=== PATIENT | female | born 1950 | race Caucasian/White ===

== ENCOUNTER → 2018-09-20 | Outpatient (CLI) | payer BC | END | disposition home or self-care (01) | LOC: CFH 14:32 | PROVIDERS: ATTEND Family Medicine | DX: N63.10 Unspecified lump in the right breast, unspecified quadrant (principal); Z80.3 Family history of malignant neoplasm of breast | CPT/HCPCS: 76642; 77066; G0279 ==

== ENCOUNTER 2018-09-22 12:10 | Outpatient (CLI) | payer BC ==
[2018-09-22] MEDS ORDERED: LIDOCAINE 1%, 20ML ONE (12:30)
[2018-09-22] MEDS ORDERED: LIDOCAINE 1%-EPI 1:100K, 20ML ONE (12:30)
[2018-09-22] MEDS ORDERED: SODIUM BICARBONATE 4.0%, 5ML ONE (12:30)
== END 2018-09-22 23:59 | disposition home or self-care (01) ==
LOC: CFH 12:10
PROVIDERS: ATTEND Family Medicine
DX: C50.911 Malignant neoplasm of unspecified site of right female breast (principal)
CPT/HCPCS: 19083; 77065; 88305; 88341; 88342; 88360; J3490; 19285

== ENCOUNTER → 2018-10-06 | Outpatient (CLI) | payer BC ==
[~2018-10-06] MED LIST: CHOL5000 PO; CLON0.5T11 PO; FLUO20CA19 PO; FLUT9.9S NS; GLUC15006 PO; KRIL1CAP22 PO; LEVO112T2 PO; MULT-717 PO; TRIA1TAB3 PO; VALA500T PO; [UNRECOGNIZED DRUG - CODE] PO
[2018-10-06 10:39] LABS: ALANINE AMINOTRANSFERASE 20 U/L (12-78); ALBUMIN 3.9 g/dL (3.4-5.0); ANION GAP 4 mmol/L (5-15); CALCIUM 9.3 mg/dL (8.5-10.1); CHLORIDE 108 mmol/L (98-107); CREATININE 1.01 mg/dL (0.55-1.02)
[2018-10-06 10:42] LABS: ALKALINE PHOSPHATASE 115 U/L (45-117); BILIRUBIN,TOTAL 0.5 mg/dL (0.2-1.0); TOTAL PROTEIN 7.6 g/dL (6.4-8.2)
== END | disposition home or self-care (01) ==
LOC: STAR 07:59
PROVIDERS: ATTEND Surgery
DX: Z01.818 Encounter for other preprocedural examination (principal)
CPT/HCPCS: 36415; 80053; 93005

== ENCOUNTER 2018-10-16 10:35 | Day surgery (SDC) | payer BC ==
[2018-10-06 08:38] VITALS: BP 147/98
[~2018-10-16] VITALS: Ht 167.6 cm; Wt 82.9 kg
[~2018-10-16 10:35] MED LIST changes: +BUPIVACAINE/PF-EPI 0.5% 1:200K ONE; +FENTANYL PF 250 MCG/5ML ONE; +ISOSULFAN BLUE 10 MG/ML, 5ML IV ONE; +MIDAZOLAM 1 MG/ML, 2ML ONE
[2018-10-16] MEDS ORDERED: LACTATED RINGERS 1,000 ML IV SCH (10:49)
[2018-10-16] MEDS ORDERED: LIDOCAINE-MPF 1%, 5ML ONE (10:52)
[2018-10-16 10:55] VITALS: BP 147/98
[2018-10-16] MEDS ORDERED: DIAZEPAM 5 MG TABLET PO ONE (11:00)
[2018-10-16] MEDS ORDERED: ACETAMINOPHEN 500 MG TABLET PO ONE (11:00)
[2018-10-16] MEDS ORDERED: ONDANSETRON ODT 8 MG PO ONE (11:00)
[2018-10-16] MEDS ORDERED: GABAPENTIN 300 MG CAPSULE PO ONE (11:00)
[2018-10-16] MEDS ORDERED: LIDOCAINE-MPF 1%, 2ML INFIL ONE (11:30)
[2018-10-16] MEDS ORDERED: PROPOFOL 10 MG/ML, 20ML ONE (12:20)
[2018-10-16] MEDS ORDERED: CEFAZOLIN 1,000 MG ONE (12:20)
[2018-10-16] MEDS ORDERED: MEPERIDINE/PF 25MG/0.5ML IVPush PRN (12:30)
[2018-10-16] MEDS ORDERED: ONDANSETRON 2MG/ML, 2ML IV PRN (12:30)
[2018-10-16] MEDS ORDERED: ALBUTEROL/IPRATROPIUM 2.5MG/0.5MG, 3 ML NPPB PRN (12:30)
[2018-10-16] MEDS ORDERED: FENTANYL PF 100 MCG/2ML IV PRN (12:30)
[2018-10-16] MEDS ORDERED: MIDAZOLAM 1 MG/ML, 2ML IV PRN (12:30)
[2018-10-16] MEDS ORDERED: METOPROLOL 1 MG/ML, 5ML IV PRN (12:30)
[2018-10-16] MEDS ORDERED: OXYcodone 5 MG/5 ML ORAL.SOL UDC PO PRN (12:30)
[2018-10-16] MEDS ORDERED: HYDROmorphone 2 MG/ML, 1ML IVPush PRN (12:30)
[2018-10-16] MEDS ORDERED: hydrALAzine 20 MG/ML, 1ML IV PRN (12:30)
[2018-10-16] MEDS ORDERED: PROMETHAZINE 25 MG/ML, 1ML IV PRN (12:30)
[2018-10-16] MEDS ORDERED: OXYcodone 5 MG/5 ML ORAL.SOL UDC ONE (12:44)
[2018-10-16] MEDS ORDERED: ROCURONIUM 10MG/ML,5ML ONE (15:13)
[2018-10-16] MEDS ORDERED: DEXAMETHASONE 4 MG/ML, 1ML ONE (15:13)
[2018-10-16] MEDS ORDERED: SUCCINYLCHOLINE 20 MG/ML, 10ML ONE (15:13)
== END 2018-10-16 15:20 | disposition home or self-care (01) ==
LOC: OUT 10:35 → EDSTATUS 13:00 → OUT 15:20
PROVIDERS: ATTEND Surgery
DX: C50.411 Malignant neoplasm of upper-outer quadrant of right female breast (principal); R59.1 Generalized enlarged lymph nodes; F41.9 Anxiety disorder, unspecified; I10 Essential (primary) hypertension; E89.0 Postprocedural hypothyroidism; Z72.89 Other problems related to lifestyle
CPT/HCPCS: 19301; 38525; 38792; 76098; 88307; A9541; C1729; J0330; J0690; J1100; J2250; J2704; J3010; J7120; Q0162

== ENCOUNTER 2018-10-23 06:54 | Day surgery (SDC) | payer BC ==
[~2018-10-23] VITALS: Ht 167.6 cm; Wt 83.6 kg
[~2018-10-23 06:54] MED LIST changes: -FENTANYL PF 250 MCG/5ML ONE; -ISOSULFAN BLUE 10 MG/ML, 5ML IV ONE; -MIDAZOLAM 1 MG/ML, 2ML ONE
[2018-10-23] MEDS ORDERED: ACETAMINOPHEN 500 MG TABLET PO ONE ×2 (07:30→08:00)
[2018-10-23] MEDS ORDERED: SCOPOLAMINE PATCH, 1.5MG PATCH.TD72 TD ONE ×2 (07:30→08:00)
[2018-10-23] MEDS ORDERED: GABAPENTIN 300 MG CAPSULE PO ONE ×2 (07:30→08:00)
[2018-10-23 07:39] VITALS: BP 141/95
[2018-10-23] MEDS ORDERED: LACTATED RINGERS 1,000 ML IV SCH (07:39)
[2018-10-23] MEDS ORDERED: MIDAZOLAM 1 MG/ML, 2ML ONE (08:13)
[2018-10-23] MEDS ORDERED: FENTANYL PF 250 MCG/5ML ONE (08:13)
[2018-10-23] MEDS ORDERED: LIDOCAINE-MPF 2% ,5ML ONE (08:15)
[2018-10-23] MEDS ORDERED: PROPOFOL 10 MG/ML, 20ML ONE (08:15)
[2018-10-23] MEDS ORDERED: CEFAZOLIN 1,000 MG ONE ×2 (08:16→08:17)
[2018-10-23] MEDS ORDERED: WATER-INJECTION,STERILE 10 ML IV ONE (08:16)
[2018-10-23] MEDS ORDERED: ONDANSETRON 2MG/ML, 2ML ONE ×2 (08:19)
[2018-10-23] MEDS ORDERED: DEXAMETHASONE 4 MG/ML, 1ML ONE (08:55)
[2018-10-23] MEDS ORDERED: NEOSTIGMINE 1 MG/ML, 10ML ONE (08:55)
[2018-10-23] MEDS ORDERED: GLYCOPYRROLATE 0.4 MG/2 ML, 2ML ONE (09:15)
[2018-10-23] MEDS ORDERED: KETOROLAC 30 MG/1 ML ONE (09:15)
[2018-10-23] MEDS ORDERED: HYDROmorphone 2 MG/ML, 1ML IVPush PRN (09:30)
[2018-10-23] MEDS ORDERED: HALOPERIDOL 5 MG/ML IV PRN (09:30)
[2018-10-23] MEDS ORDERED: FENTANYL PF 100 MCG/2ML IV PRN (09:30)
[2018-10-23] MEDS ORDERED: hydrALAzine 20 MG/ML, 1ML IV PRN (09:30)
[2018-10-23] MEDS ORDERED: ACETAMINOPHEN 325 MG TABLET PO PRN (09:30)
[2018-10-23] MEDS ORDERED: PROMETHAZINE 25 MG/ML, 1ML IV PRN (09:30)
[2018-10-23] MEDS ORDERED: MEPERIDINE/PF 25MG/0.5ML IVPush PRN (09:30)
[2018-10-23] MEDS ORDERED: OXYcodone 5 MG/5 ML ORAL.SOL UDC PO PRN (09:30)
[2018-10-23] MEDS ORDERED: OXYcodone 5 MG/5 ML ORAL.SOL UDC ONE (09:46)
== END 2018-10-23 11:40 | disposition home or self-care (01) ==
LOC: OUT 06:54
PROVIDERS: ATTEND Surgery
DX: C50.911 Malignant neoplasm of unspecified site of right female breast (principal); R59.1 Generalized enlarged lymph nodes; N64.1 Fat necrosis of breast; F41.9 Anxiety disorder, unspecified; I10 Essential (primary) hypertension; E89.0 Postprocedural hypothyroidism; Z72.89 Other problems related to lifestyle
CPT/HCPCS: 19301; 38525; 88305; C1729; J0690; J1100; J1885; J2250; J2405; J2704; J2710; J3010; J3490; J7120; 88341; 88342

== ENCOUNTER → 2018-12-21 | Outpatient (CLI) | payer BC ==
[~2018-12-21] MED LIST changes: -BUPIVACAINE/PF-EPI 0.5% 1:200K ONE; +OMNIPAQUE 350 MG/ML, 100ML BOTTLE ONE
== END | disposition home or self-care (01) ==
LOC: PETCFH 07:23
PROVIDERS: ATTEND Internal Medicine Hematology & Oncology
DX: C50.811 Malignant neoplasm of overlapping sites of right female breast (principal); N28.89 Other specified disorders of kidney and ureter; Z87.891 Personal history of nicotine dependence
CPT/HCPCS: 71260; 74177; 78306; A9503; Q9967

== ENCOUNTER 2019-03-20 10:43 | Outpatient (CLI) | payer BC ==
[~2019-03-20 10:43] MED LIST changes: -OMNIPAQUE 350 MG/ML, 100ML BOTTLE ONE; +VITS1TAB3 PO; -[UNRECOGNIZED DRUG - CODE] PO
== END 2019-03-20 23:59 | disposition home or self-care (01) ==
LOC: ROC 10:43
PROVIDERS: ATTEND Radiology Radiation Oncology
DX: C50.411 Malignant neoplasm of upper-outer quadrant of right female breast (principal)
CPT/HCPCS: 99213; G0463

== ENCOUNTER 2019-03-21 09:05 | Outpatient (CLI) | payer BC | END 2019-03-21 23:59 | disposition home or self-care (01) | LOC: CFH 09:05 | PROVIDERS: ATTEND Internal Medicine Hematology & Oncology | DX: Z13.820 Encounter for screening for osteoporosis (principal); C50.811 Malignant neoplasm of overlapping sites of right female breast; Z78.0 Asymptomatic menopausal state | CPT/HCPCS: 77080 ==

== ENCOUNTER → 2019-07-11 | Outpatient (CLI) | payer BC | END | disposition home or self-care (01) | LOC: CFH 14:28 | PROVIDERS: ATTEND Radiology Radiation Oncology | DX: C50.411 Malignant neoplasm of upper-outer quadrant of right female breast (principal); R92.8 Other abnormal and inconclusive findings on diagnostic imaging of breast; Z87.891 Personal history of nicotine dependence; Z82.5 Family history of asthma and other chronic lower respiratory diseases; Z82.49 Family history of ischemic heart disease and other diseases of the circulatory system | CPT/HCPCS: 77066; G0279 ==

== ENCOUNTER → 2019-08-10 | Outpatient (CLI) | payer BC | END | disposition home or self-care (01) | LOC: EDSTATUS 04-30 18:00 → ROC 07:31 | PROVIDERS: ATTEND Radiology Radiation Oncology | DX: Z08 Encounter for follow-up examination after completed treatment for malignant neoplasm (principal); Z85.3 Personal history of malignant neoplasm of breast; Z92.3 Personal history of irradiation | CPT/HCPCS: 99212; G0463 ==

== ENCOUNTER 2020-01-29 10:02 | Day surgery (SDC) | payer BC ==
[2020-01-28 08:45] LABS: BASOPHILS # (AUTO) 0.03 x10^3/uL (0-0.1); BASOPHILS % (AUTO) 1 % (0-1); EOSINOPHILS # (AUTO) 0.16 x10^3/uL (0-0.4); EOSINOPHILS % (AUTO) 3 % (1-7); LYMPHOCYTES % (AUTO) 23 % (22-44); MD NO; MEAN CORPUSCULAR HEMOGLOBIN 32.7 pg (27.0-34.8); MEAN CORPUSCULAR HGB CONC 32.8 g/dL (32.4-35.8); MEAN CORPUSCULAR VOLUME 99.7 fL (80-100); MEAN PLATELET VOLUME 7.5 fL (7.4-10.4); MONOCYTES # (AUTO) 0.47 x10^3/uL (0.2-0.8); MONOCYTES % (AUTO) 9 % (2-9); NEUTROPHILS # (AUTO) 3.44 x10^3/uL (1.8-6.8); NEUTROPHILS % (AUTO) 65 % (42-75); PLATELET COUNT 223 x10^3/uL (130-400); RED BLOOD COUNT 4.53 x10^6/uL (3.82-5.3); RED CELL DISTRIBUTION WIDTH 13.2 % (9.6-15.2)
[2020-01-28 08:57] LABS: ALANINE AMINOTRANSFERASE 26 U/L (12-78); ALBUMIN 3.8 g/dL (3.4-5.0); ANION GAP 6 mmol/L (5-15); CALCIUM 9.1 mg/dL (8.5-10.1); CHLORIDE 107 mmol/L (98-107); CREATININE 1.05 mg/dL (0.55-1.02)
[2020-01-28 08:59] LABS: ALKALINE PHOSPHATASE 98 U/L (45-117); BILIRUBIN,TOTAL 0.6 mg/dL (0.2-1.0); TOTAL PROTEIN 7.7 g/dL (6.4-8.2)
[2020-01-28 09:34] LABS: INTERNATIONAL NORMALIZED RATIO 0.98 (0.93-1.1); PROTHROMBIN TIME 10.4 Seconds (9.6-11.5)
[~2020-01-29] VITALS: Ht 167.6 cm; Wt 77.2 kg
[~2020-01-29 10:02] MED LIST changes: +ACET650T59 PO; +ANAS1TAB49 PO; +ASCO-96 PO; +BUPIVACAINE/PF 0.25% ONE; +CALC1CAP8 PO; +CLON-364 PO; -CLON0.5T11 PO; +CYAN50008 PO; +FAMO-79 PO; +HEPARIN 1,000 UNITS/ML, 10ML ONE; +INDOCYANINE GREEN 25 MG VIAL ONE; +LACT1CAP20 PO; +LORA-702 PO; +MAGN400T36 PO; +POTASSIUM CITRATE PO; -VALA500T PO; +VALA500T8 PO; +[UNRECOGNIZED DRUG - OTHER] PO
[2020-01-29 10:28] VITALS: BP 145/93
[2020-01-29] MEDS ORDERED: LACTATED RINGERS 1,000 ML IV SCH (10:30)
[2020-01-29] MEDS ORDERED: CEFOTETAN PMX 2GM/50ML 50 ML IV ONE (10:30)
[2020-01-29] MEDS ORDERED: CHLORHEXIDINE 15 ML UDC MM ONE (10:30)
[2020-01-29] MEDS ORDERED: FENTANYL PF 250 MCG/5ML ONE (12:33)
[2020-01-29] MEDS ORDERED: MIDAZOLAM 1 MG/ML, 2ML ONE (12:33)
[2020-01-29] MEDS ORDERED: NEOSTIGMINE 1 MG/ML, 10ML ONE (12:36)
[2020-01-29] MEDS ORDERED: ONDANSETRON 2MG/ML, 2ML ONE (12:36)
[2020-01-29] MEDS ORDERED: GLYCOPYRROLATE 0.4 MG/2 ML, 2ML ONE (12:36)
[2020-01-29] MEDS ORDERED: PROPOFOL 10 MG/ML, 100ML IV ONE (12:36)
[2020-01-29] MEDS ORDERED: DEXAMETHASONE 4 MG/ML, 1ML ONE (12:36)
[2020-01-29] MEDS ORDERED: BUPIVACAINE/PF-EPI 0.25% 1:200K ONE (12:51)
[2020-01-29] MEDS ORDERED: hydrALAzine 20 MG/ML, 1ML IV PRN (14:00)
[2020-01-29] MEDS ORDERED: OXYC-302 PO (14:00)
[2020-01-29] MEDS ORDERED: LABETALOL 5MG/ML, 20ML IV PRN (14:00)
[2020-01-29] MEDS ORDERED: OXYcodone 5 MG/5 ML ORAL.SOL UDC PO PRN (14:00)
[2020-01-29] MEDS ORDERED: ONDANSETRON 2MG/ML, 2ML IVPush PRN (14:00)
[2020-01-29] MEDS ORDERED: OXYcodone 5 MG/5 ML ORAL.SOL UDC ONE (14:18)
[2020-01-29] MEDS ORDERED: FENTANYL PF 100 MCG/2ML ONE ×2 (14:18→14:48)
[2020-01-29] MEDS: HYDROmorphone 1 MG/ML, 1ML INJ IVPush PRN ×4 (14:19→14:50)
[2020-01-29] MEDS: FENTANYL PF 100 MCG/2ML IV PRN ×5 (14:22→14:56)
[2020-01-29] MEDS ORDERED: HYDROmorphone 1 MG/ML, 1ML INJ ONE (14:29)
[2020-01-29] MEDS ORDERED: MEPERIDINE/PF 25MG/ML,1ML ONE (14:53)
== END 2020-01-29 17:30 | disposition home or self-care (01) ==
LOC: OUT 10:02
PROVIDERS: ATTEND Specialist
DX: R19.09 Other intra-abdominal and pelvic swelling, mass and lump (principal); Z11.59 Encounter for screening for other viral diseases; C77.4 Secondary and unspecified malignant neoplasm of inguinal and lower limb lymph nodes; N87.9 Dysplasia of cervix uteri, unspecified; D25.9 Leiomyoma of uterus, unspecified; N83.292 Other ovarian cyst, left side; N83.291 Other ovarian cyst, right side; I10 Essential (primary) hypertension; E89.0 Postprocedural hypothyroidism; K21.9 Gastro-esophageal reflux disease without esophagitis; F41.8 Other specified anxiety disorders; Z79.01 Long term (current) use of anticoagulants; Z79.890 Hormone replacement therapy; Z79.899 Other long term (current) drug therapy; Z85.3 Personal history of malignant neoplasm of breast; Z85.850 Personal history of malignant neoplasm of thyroid; Z98.890 Other specified postprocedural states; Z82.49 Family history of ischemic heart disease and other diseases of the circulatory system
CPT/HCPCS: 36415; 58552; 71046; 80053; 85025; 85610; 85730; 86304; 86850; 86900; 86923; 88112; 88305; 88307; 88342; 93005; J1100; J1170; J1644; J2250; J2405; J2704; J2710; J3010; J3490; J7120; S2900; U0001

== ENCOUNTER → 2020-03-26 | Outpatient (CLI) | payer BC ==
[~2020-03-26] MED LIST changes: -BUPIVACAINE/PF 0.25% ONE; -HEPARIN 1,000 UNITS/ML, 10ML ONE; -INDOCYANINE GREEN 25 MG VIAL ONE; +OXYC-302 PO
== END | disposition home or self-care (01) ==
LOC: ROC 08:53
PROVIDERS: ATTEND Radiology Radiation Oncology
DX: C77.4 Secondary and unspecified malignant neoplasm of inguinal and lower limb lymph nodes (principal); C50.411 Malignant neoplasm of upper-outer quadrant of right female breast
CPT/HCPCS: G0463-95

== ENCOUNTER → 2020-07-14 | Outpatient (CLI) | payer BC | END | disposition home or self-care (01) | LOC: CFH 09:06 | PROVIDERS: ATTEND Radiology Radiation Oncology | DX: Z12.31 Encounter for screening mammogram for malignant neoplasm of breast (principal); C50.411 Malignant neoplasm of upper-outer quadrant of right female breast | CPT/HCPCS: 77063; 77067 ==

== ENCOUNTER → 2020-07-17 | Outpatient (CLI) | payer BC, MEDICARE | END | disposition home or self-care (01) | LOC: ROC 07:13 | PROVIDERS: ATTEND Radiology Radiation Oncology | DX: Z08 Encounter for follow-up examination after completed treatment for malignant neoplasm (principal); C50.411 Malignant neoplasm of upper-outer quadrant of right female breast | CPT/HCPCS: G0463-95 ==

== ENCOUNTER 2020-11-07 07:06 | Outpatient (CLI) | payer BC, MEDICARE ==
[~2020-11-07 07:06] MED LIST changes: -OXYC-302 PO; +OXYC1TAB14 PO
== END 2020-11-07 23:59 | disposition home or self-care (01) ==
LOC: ROC 07:06
PROVIDERS: ATTEND Radiology Radiation Oncology
DX: Z08 Encounter for follow-up examination after completed treatment for malignant neoplasm (principal); Z85.3 Personal history of malignant neoplasm of breast
CPT/HCPCS: 99212; G0463

== ENCOUNTER → 2020-12-29 | Outpatient (CLI) | payer BC, MEDICARE ==
[~2020-12-29] MED LIST changes: -CYAN50008 PO; +CYAN50009 PO
== END | disposition home or self-care (01) ==
LOC: CFH 08:30
PROVIDERS: ATTEND Internal Medicine Hematology & Oncology
DX: C50.811 Malignant neoplasm of overlapping sites of right female breast (principal); C44.92 Squamous cell carcinoma of skin, unspecified; M85.89 Other specified disorders of bone density and structure, multiple sites
CPT/HCPCS: 77080

== ENCOUNTER → 2021-03-12 | Outpatient (CLI) | payer BC | END | disposition home or self-care (01) | LOC: ROC 07:33 | PROVIDERS: ATTEND Radiology Radiation Oncology | DX: Z08 Encounter for follow-up examination after completed treatment for malignant neoplasm (principal); Z85.3 Personal history of malignant neoplasm of breast | CPT/HCPCS: 99213; G0463 ==